=== PATIENT | female | born 1960 | race Caucasian/White ===

== ENCOUNTER → 2018-11-28 | Outpatient (CLI) | payer MEDICARE, MEDICAID ==
--- NOTE | 2018-11-28 08:49 | WOMENS IMAGING REPORT ---
EXAM DESCRIPTION: U/S ABDOMEN LIMITED COMPLETED DATE/TIME: 11/28/2018 8:15 am REASON FOR STUDY: K70.0 ALCOHOLIC FATTY LIVER K70.0 ALCOHOLIC FATTY LIVER COMPARISON: None. TECHNIQUE: Dynamic and static grayscale images acquired of the abdomen and recorded on PACS. Additio nal selected color Doppler and spectral images recorded. LIMITATIONS: None. FINDINGS: PANCREAS: No masses. Visualized pancreatic duct normal caliber. LIVER: For coarsened hepatic echotexture with nodular contour. No intrahepatic biliary ductal dilati on. No focal lesion identified. LIVER VASCULATURE: Normal directional flow of the main portal vein and hepatic veins. GALLBLADDER: No stones. Normal wall thickness. No pericholecystic fluid. ULTRASOUND-DETECTED HAHN'S SIGN: Negative. INTRAHEPATIC DUCTS AND COMMON DUCT: CBD and intrahepatic ducts normal caliber. No filling defects. INFERIOR VENA CAVA: Normal flow. AORTA: Aortic atherosclerosis. No aneurysm. RIGHT KIDNEY: Normal in size measuring 9.4 cm. Cortical thinning. Normal echogenicity. No solid or suspicious masses. No hydronephrosis. No calcifications. PERITONEAL AND RIGHT PLEURAL SPACE: No ascites or effusions. OTHER: No other significant findings. IMPRESSION: 1. Coarsened hepatic echotexture and nodular contour suggestive of intrinsic liver dise ase/cirrhosis. No ascites. 2. No other evidence of acute intra-abdominal/pelvic process . TECHNICAL DOCUMENTATION: JOB ID: [id number] [employer]- All Rights Reserved Reading location - IP/workstation name: [email or web address]
== END ==
LOC: WI 07:45
PROVIDERS: ATTEND Internal Medicine Gastroenterology
DX: K70.30 Alcoholic cirrhosis of liver without ascites (principal); I70.0 Atherosclerosis of aorta
CPT/HCPCS: 76705

== ENCOUNTER → 2019-11-02 | Outpatient (CLI) | payer MEDICARE, MEDICAID ==
--- NOTE | 2019-11-02 08:39 | WOMENS IMAGING REPORT ---
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 TECHNIQUE: Dynamic and static grayscale images acquired of the abdomen and recorded on PACS. Additio nal selected color Doppler and spectral images recorded. LIMITATIONS: None. FINDINGS: PANCREAS: The visualized portions of the pancreas appear normal. LIVER: Nodular contour and coarse heterogeneous echotexture of the liver. There is no mass. LIVER VASCULATURE: Hepatopetal directional flow in the portal veins. The hepatic veins are patent. GALLBLADDER: The gallbladder wall measures 2.5 mm in thickness. There is no cholelithiasis, sludge o r pericholecystic fluid. ULTRASOUND-DETECTED HAHN'S SIGN: Negative. INTRAHEPATIC DUCTS AND COMMON DUCT: The common bile duct measures 2.8 mm in diameter. There is no di latation of the intrahepatic bile ducts. INFERIOR VENA CAVA: Patent. AORTA: No aneurysm. RIGHT KIDNEY: The right kidney measures 9.6 cm in length. The cortex of the kidney is thinned. The re is no hydronephrosis. PERITONEAL AND RIGHT PLEURAL SPACE: No ascites or effusions. OTHER: No other findings. IMPRESSION: 1. Nodular contour and coarse heterogeneous echotexture of the liver suggestive of under lying cirrhosis. There is no mass or ascites and there is normal hepatopetal directional flow in the portal veins. 2. No abnormality of the gallbladder. 3. Thinning of the cortex of the right kidney - correlate for chronic medical renal disease. TECHNICAL DOCUMENTATION: JOB ID: [id number] 2010 [employer]- All Rights Reserved Reading location - IP/workstation name: [email or web address]
== END ==
LOC: WI 06:50
PROVIDERS: ATTEND Internal Medicine Gastroenterology
DX: K70.30 Alcoholic cirrhosis of liver without ascites (principal)
CPT/HCPCS: 76705

== ENCOUNTER 2019-12-04 05:40 | Emergency (ER) | payer MEDICARE, MEDICAID ==
--- NOTE | 2019-12-04 06:18 | RADIOLOGY REPORT (SQ) ---
EXAM DESCRIPTION: XR ANKLE 3 OR MORE VIEWS COMPLETED DATE/TME: 12/04/2019 00:00 CLINICAL HISTORY: 59 years, Female, fall/ swelling COMPARISON: None. NUMBER OF VIEWS: 3 TECHNIQUE: 3 views right ankle LIMITATIONS: None. FINDINGS: Osteopenia. Nondisplaced fracture of the distal fibula. Mildly displaced fracture of the medial malleolus. No dislocation. Chronic, degenerative changes of the foot and ankle. Diffuse soft tissue swelling. IMPRESSION: Acute fracture deformities of the distal fibula and medial malleolus with soft tissue swelling. copyright 2010 [employer]- All Rights Reserved
[2019-12-04] MEDS ORDERED: OXYCODONE-ACETAMINOPHEN 5-325 MG TABLET PO ONE (06:35)
[2019-12-04] MEDS ORDERED: IBUPROFEN 600 MG TABLET PO ONE (06:35)
--- NOTE | 2019-12-04 07:08 | ER Document Report ---
HPI - HPI Time Seen by Provider: 12/04/19 05:58 Pain Level: 5 Notes: 59-year-old female patient presents the emergency department chief complaint of right ankle pain. Patient reports she fell just prior to arrival. She states she tripped. She did not pass out, she did not strike her head. Patient reports she cannot bear weight. - MUSCULOSKELETAL Musculoskeletal: REPORTS: Extremity pain - right ankle Past Medical History - General Information source: Patient - Social History Smoking Status: Former Smoker Frequency of alcohol use: None Drug Abuse: None Family History: Reviewed & Not Pertinent - Past Medical History Cardiac Medical History: Reports: Hx Hypertension Surgical Hx: Negative Vertical Provider Document - CONSTITUTIONAL Notes: PHYSICAL EXAMINATION: GENERAL: Well-appearing, well-nourished and in no acute distress. HEAD: Atraumatic, normocephalic. EYES: Pupils equal round extraocular movements intact, conjunctiva are normal. ENT: Nares patent NECK: Normal range of motion LUNGS: No respiratory distress Musculoskeletal: Limited range of motion at right ankle, edema noted. No ecchymosis or erythema. Strong dorsalis pedis pulse, cap refill less than 3 seconds. Tenderness on palpation to both the medial and lateral aspect of the ankle. NEUROLOGICAL: Normal speech. PSYCH: Normal mood, normal affect. SKIN: Warm, Dry, normal turgor, no rashes or lesions noted. - INFECTION CONTROL TRAVEL OUTSIDE OF THE [place] IN LAST 30 DAYS: No Course - Re-evaluation Re-evalutation: Ankle X-Ray 12/04/19 00:00 IMPRESSION: Acute fracture deformities of the distal fibula and medial malleolus with soft tissue swelling. copyright 2010 [employer]- All Rights Reserved Patient splinted. She will follow-up with orthopedics. Patient verbalized understanding and agreement this plan. - Vital Signs Vital signs: Temp Pulse Resp BP Pulse Ox 98.6 F 105 H 12 117/84 95 12/04/19 05:46 12/04/19 05:46 12/04/19 05:46 12/04/19 05:46 12/04/19 05:46 Procedures - Immobilization Right lower extremity Pre-Proc Neuro Vasc Exam: Normal Immobilizer type: Cock-up, Crutches Performed by: PCT Post-Proc Neuro Vasc Exam: Normal Alignment checked and good: Yes Discharge - Discharge Clinical Impression: Fibula fracture Qualifiers: Encounter type: initial encounter Fibula location: distal Fracture type: closed Fracture morphology: unspecified fracture morphology Laterality: right Qualified Code(s): S82.831A - Other fracture of upper and lower end of right fibula, initial encounter for closed fracture Condition: Stable Disposition: HOME, SELF-CARE Additional Instructions: Fracture of Distal Fibula You have a fracture at the end of the fibula, the smaller bone in the lower leg. The fracture is across the bony bump on the outer side of the ankle. This fracture will usually heal well, but must be protected from the pull of ligaments and tendons at the ankle. If this fracture rotates out of position (or is felt likely to rotate), it must be operated on. Initially, the extremity should be kept elevated, with ice packs applied frequently. This fracture is usually treated with a cast or walking boot. If a walking boot has been selected, it's critical that it NOT be removed without the doctor's approval, not even for sleeping or baths. Healing of this fracture takes about four to eight weeks. Younger patients heal more quickly. An X-ray is usually required during healing to check for complications and to assess healing. Call the doctor or return at once if there is severe swelling, increasing pain, or numbness in the foot. You may take ibuprofen 600 mg every 6 hours. Use the narcotic pain medication for severe pain only. Call orthopedics today to set up an appointment. Let them know you are seen in the emergency department and need follow-up. Prescriptions: Oxycodone HCl/Acetaminophen [Percocet 5-325 mg Tablet] 1 tab PO Q6HP PRN #15 tablet PRN Reason: Walker [Ultra-Light Rollator] 1 each MC ONCE PRN #1 each PRN Reason: Referrals: RAGHAV ESCOTO, [ACTIVE STAFF] - Follow up as needed BABS DUGGAN JR, DO [ACTIVE PROVISIONAL STAFF] - Follow up as needed
[2019-12-04 08:44] VITALS: BP 118/74
== END 2019-12-04 08:44 | disposition home or self-care (01) ==
LOC: ER 05:40
DX: S82.831A Other fracture of upper and lower end of right fibula, initial encounter for closed fracture (principal); S82.51XA Displaced fracture of medial malleolus of right tibia, initial encounter for closed fracture; M25.571 Pain in right ankle and joints of right foot; W19.XXXA Unspecified fall, initial encounter; Y93.89 Activity, other specified
CPT/HCPCS: 99283; 73610; A9270 ×2

== ENCOUNTER 2019-12-24 13:05 | Emergency (ER) | payer MEDICARE, MEDICAID ==
[2019-12-24 13:17] VITALS: BP 125/88
--- NOTE | 2019-12-24 13:51 | ER Document Report ---
ED Extremity Problem, Lower - General Chief Complaint: Ankle Pain Stated Complaint: ANKLE PAIN Time Seen by Provider: 12/24/19 13:42 Primary Care Provider: BERNY DASH MD [Primary Care Provider] - Follow up as needed CARLOS TRAVIS MD [ACTIVE STAFF] - Follow up as needed Mode of Arrival: Medic Information source: Patient Notes: 59-year-old female presented to ED for complaint of continued pain in the right ankle. She states she fractured her ankle on December 08. She did go in to see Alexis he put a brace on her ankle and put her on Ultram. She states she is not getting any relief from the pain and she cannot walk on the brace he put on her. I did place a call to Dr. Travis will re-x-ray the ankle and then discussed with him the care plan after that. TRAVEL OUTSIDE OF THE [place] IN LAST 30 DAYS: No - HPI Patient complains to provider of: Injury, Pain, Swelling Location: Ankle Occurred: Other - Repeat visit continued pain Onset/Duration: Persistent Severity: Moderate Pain Level: 2 Context: Other - Should her ankle on December 08 cassie Travis is still having pain Recent injury: Yes Associated symptoms: Painful ambulation Exacerbated by: Movement, Walking Relieved by: Elevation, Ice, Rest - Related Data Allergies/Adverse Reactions: Penicillins Allergy (Verified 12/24/19 13:32) Sulfa (Sulfonamide Antibiotics) Allergy (Verified 12/24/19 13:32) Home Medications: htn. mood stabilizer. antidepressant. trazadone. tramadol Past Medical History - General Information source: Patient - Social History Smoking Status: Current Every Day Smoker Cigarette use (# per day): Yes - 1/2 pack/day Chew tobacco use (# tins/day): No Frequency of alcohol use: Social Drug Abuse: None Lives with: Family Family History: Reviewed & Not Pertinent Patient has homicidal ideation: No - Past Medical History Cardiac Medical History: Reports: Hx Hypertension Pulmonary Medical History: Reports: None EENT Medical History: Reports: None Neurological Medical History: Reports: None Endocrine Medical History: Reports: None Renal/ Medical History: Reports: None Malignancy Medical History: Reports: None GI Medical History: Reports: None Musculoskeletal Medical History: Reports None Skin Medical History: Reports None Psychiatric Medical History: Reports: Hx Depression Traumatic Medical History: Reports: None Infectious Medical History: Reports: None Past Surgical History: Reports: Hx Orthopedic Surgery - right ankle - Immunizations Immunizations up to date: Yes Review of Systems - Review of Systems Constitutional: No symptoms reported EENT: No symptoms reported Cardiovascular: No symptoms reported Respiratory: No symptoms reported Gastrointestinal: No symptoms reported Genitourinary: No symptoms reported Female Genitourinary: No symptoms reported Musculoskeletal: Other - Injured right ankle pain fractured on December 08 Skin: No symptoms reported Hematologic/Lymphatic: No symptoms reported Neurological/Psychological: No symptoms reported -: Yes All other systems reviewed and negative Physical Exam - Vital signs Vitals: Temp Pulse Resp BP Pulse Ox 99.0 F 80 16 125/88 H 97 12/24/19 13:16 12/24/19 13:16 12/24/19 13:16 12/24/19 13:16 12/24/19 13:16 Interpretation: Normal - General General appearance: Appears well, Alert - HEENT Head: Normocephalic, Atraumatic Eyes: Normal Pupils: PERRL - Respiratory Respiratory status: No respiratory distress Chest status: Nontender Breath sounds: Normal Chest palpation: Normal - Cardiovascular Rhythm: Regular Heart sounds: Normal auscultation Murmur: No - Abdominal Inspection: Normal Distension: No distension Bowel sounds: Normal Tenderness: Nontender Organomegaly: No organomegaly - Back Back: Normal, Nontender - Extremities General upper extremity: Normal inspection, Nontender, Normal color, Normal ROM, Normal temperature General lower extremity: Normal color, Normal ROM, Normal temperature. No: Nirmal's sign Ankle: Tender, Ecchymosis, Edema, Limited ROM, Unable to bear weight - Neurological Neuro grossly intact: Yes Cognition: Normal Orientation: AAOx4 Bridger Coma Scale Eye Opening: Spontaneous [place] Coma Scale Verbal: Oriented Bridger Coma Scale Motor: Obeys Commands Corning Coma Scale Total: 15 Speech: Normal Motor strength normal: LUE, RUE, LLE, RLE Sensory: Normal - Psychological Associated symptoms: Normal affect, Normal mood - Skin Skin Temperature: Warm Skin Moisture: Dry Skin Color: Normal Course - Re-evaluation Re-evalutation: 12/24/19 21:[address] Travis concerning this patient as she had been seen in the emergency room and treated by Dr. Travis. Patient stated that she took the splint off to Dr. Travis put on because it was uncomfortable and had been walking on the foot. She stated she needed pain medicine. The fracture to the ankle is now comminuted. Dr. Travis did look at the x-ray he requested a posterior ankle be applied and crutches provided and patient to be discharged home and to be in his office at 8:00 in the morning. Patient was given these instructions after her splint was applied. - Vital Signs Vital signs: Temp Pulse Resp BP Pulse Ox 99.0 F 80 16 125/88 H 97 12/24/19 13:32 12/24/19 13:16 12/24/19 13:16 12/24/19 13:16 12/24/19 13:16 - Diagnostic Test Radiology reviewed: Image reviewed, Reports reviewed Procedures - Immobilization Right Ankle Time completed: 14:51 Immobilizer type: Posterior ankle Performed by: PCT Post-Proc Neuro Vasc Exam: Normal Alignment checked and good: No Notes: 12/24/19 21:47 Patient refused crutches she stated she had them at home. Discharge - Discharge Clinical Impression: Comminuted fracture right ankle Condition: Stable Disposition: HOME, SELF-CARE Additional Instructions: Your x-ray shows a slightly displaced distal comminuted fracture of the fibula and a nondisplaced medial malleolus fracture. There is slight swelling to the area. I have spoken with Dr. Travis. He requested a posterior ankle splint and for you to be in his office at 8:00 in the morning. Ice & Elevation Apply ice packs frequently against the painful area. Many different schedules are recommended, such as "20 minutes on, 20 minutes off" or "one hour ice, two hours rest." If you need to work, you may need to go longer between ice treatments. You should plan to have the area ice packed AT LEAST one-fourth of the time. The ice should be applied over the wrap, tape, or splint, or over a layer of cloth -- not directly against the skin. Some ice bags have a built-in cloth and can be put directly on the skin. Your injured part should be elevated as much as possible over the next 48 hours. Try to keep the injury above the level of the heart. Avoid use of the injured area. Elevation and rest will decrease the swelling. Ibuprofen Ibuprofen is an excellent, safe drug for pain control. In addition, it has potent antiinflammatory effects which are beneficial, especially in the treatment of injuries, arthritis, or tendonitis. It's best to take ibuprofen with food. Persons with ulcer disease or allergy to aspirin should notify their physician of this before taking ibuprofen. Take the medication exactly as prescribed. Don't take additional doses unless instructed to do so by your doctor. If you develop wheezing, shortness of breath, hives, faintness, stomach pain, vomiting, or dark black stools, return for re-evaluation at once. Oral Narcotic Medication You have been given a prescription for pain control. This medication is a narcotic. It's best taken with food, as nausea can result if taken on an empty stomach. Don't operate machinery or drive within six hours of taking this medication. Do not combine this medicine with alcohol, or with any medication which can cause sedation (such as cold tablets or sleeping pills) unless you get permission from the physician. Narcotics tend to cause constipation. If possible, drink plenty of fluids and eat a diet high in fiber and fruits. FOLLOW-UP CARE: If you have been referred to a physician for follow-up care, call the physicians office for an appointment as you were instructed or within the next two days. If you experience worsening or a significant change in your symptoms, notify the physician immediately or return to the Emergency Department at any time for re-evaluation. Forms: Elevated Blood Pressure Referrals: BERNY DASH MD [Primary Care Provider] - Follow up as needed CARLOS TRAVIS MD [ACTIVE STAFF] - Follow up as needed
--- NOTE | 2019-12-24 14:23 | RADIOLOGY REPORT (SQ) ---
EXAM DESCRIPTION: ANKLE RIGHT COMPLETE IMAGES COMPLETED DATE/TIME: 12/24/2019 2:11 pm REASON FOR STUDY: continued pain in right ankle COMPARISON: 12/04/2019 NUMBER OF VIEWS: Three views. TECHNIQUE: AP, lateral, and oblique radiographic images acquired of the right ankle. LIMITATIONS: None. FINDINGS: MINERALIZATION: Normal. BONES: Slightly displaced comminuted fracture distal fibula. Nondisplaced medial malleolus. Soft t issue swelling. Retrocalcaneal spur. JOINTS: No effusions. SOFT TISSUES: No soft tissue swelling. No foreign body. OTHER: No other significant finding. IMPRESSION: 1. Slightly displaced distal comminuted fibula fracture. Nondisplaced medial malleolus fracture. Soft tissue swelling. TECHNICAL DOCUMENTATION: JOB ID: [id number] 2010 [employer]- All Rights Reserved Reading location - IP/workstation name: [email or web address]
[2019-12-24] MEDS ORDERED: HYDROCODONE/ACETAMINOPHEN 5-325 MG TABLET PO ONE (14:46)
== END 2019-12-24 15:06 | disposition home or self-care (01) ==
LOC: ER 13:05
PROC: 2W3QX1Z Immobilization of Right Lower Leg using Splint (ICD-10-PCS; principal; 2019-12-24)
DX: S82.891A Other fracture of right lower leg, initial encounter for closed fracture (principal); M25.571 Pain in right ankle and joints of right foot; X58.XXXA Exposure to other specified factors, initial encounter; Z79.899 Other long term (current) drug therapy; Z88.0 Allergy status to penicillin; Z88.2 Allergy status to sulfonamides; F17.210 Nicotine dependence, cigarettes, uncomplicated; I10 Essential (primary) hypertension
CPT/HCPCS: 99283; 73610; 29515; A9270

== ENCOUNTER 2019-12-25 09:20 | Emergency (ER) | payer MEDICARE, MEDICAID ==
[2019-12-25 09:34] VITALS: BP 138/77
[2019-12-25] MEDS ORDERED: HYDROCODONE/ACETAMINOPHEN 5-325 MG (6 TAB/ER DISP) PO PRN (09:57)
--- NOTE | 2019-12-25 10:05 | ER Document Report ---
ED Extremity Problem, Lower - General Chief Complaint: Leg Pain Stated Complaint: LEG INJURY Time Seen by Provider: 12/25/19 09:52 Primary Care Provider: BERNY DASH MD [Primary Care Provider] - Follow up as needed Mode of Arrival: Wheelchair Information source: Patient Notes: 59-year-old female was seen on 12/09 and was diagnosed with a fractured ankle he did follow-up with Dr. Brown who treated her. She came in yesterday stating that he did not give her enough pain medicine and that she did not like the brace it was making her pain worse. So I did re-x-ray the ankle called Dr. Brown had him look at the x-ray and he saw her this morning at 8:00. She came in again today because he would not give her any pain medicine he did put a cast on her leg. I did treat her with a sixpack of [place] until she can get in with pain management. TRAVEL OUTSIDE OF THE [place] IN LAST 30 DAYS: No - HPI Patient complains to provider of: Injury, Pain, Swelling Location: Ankle Occurred: Other - 06/11/2019 Onset/Duration: Persistent Quality of pain: Sharp, Throbbing Severity: Moderate Pain Level: 4 Context: Other Recent injury: Yes - Acute ankle Associated symptoms: Painful ambulation Exacerbated by: Hanging down, Movement, Walking Relieved by: Elevation, Ice, Rest - Related Data Allergies/Adverse Reactions: Penicillins Allergy (Verified 12/24/19 13:32) Sulfa (Sulfonamide Antibiotics) Allergy (Verified 12/24/19 13:32) Past Medical History - General Information source: Patient - Social History Smoking Status: Current Every Day Smoker Frequency of alcohol use: Social Drug Abuse: None Lives with: Family Family History: Reviewed & Not Pertinent Patient has suicidal ideation: No Patient has homicidal ideation: No - Past Medical History Cardiac Medical History: Reports: Hx Hypertension Pulmonary Medical History: Reports: None EENT Medical History: Reports: None Neurological Medical History: Reports: None Endocrine Medical History: Reports: None Renal/ Medical History: Reports: None Malignancy Medical History: Reports: None GI Medical History: Reports: None Musculoskeletal Medical History: Reports Hx Musculoskeletal Deformity, Reports Hx Musculoskeletal Trauma Skin Medical History: Reports None Psychiatric Medical History: Reports: Hx Depression Traumatic Medical History: Reports: Hx Fractures Infectious Medical History: Reports: None Past Surgical History: Reports: Hx Orthopedic Surgery - right ankle - Immunizations Immunizations up to date: Yes Review of Systems - Review of Systems Constitutional: No symptoms reported EENT: No symptoms reported Cardiovascular: No symptoms reported Respiratory: No symptoms reported Gastrointestinal: No symptoms reported Genitourinary: No symptoms reported Female Genitourinary: No symptoms reported Musculoskeletal: Other - Right ankle pain which is in a cast. Patient was seen at Dr. Brown's office today fractured ankle Skin: No symptoms reported Hematologic/Lymphatic: No symptoms reported Neurological/Psychological: No symptoms reported -: Yes All other systems reviewed and negative Physical Exam - Vital signs Vitals: Temp Pulse Resp BP Pulse Ox 98.8 F 77 16 138/77 H 98 12/25/19 09:33 12/25/19 09:33 12/25/19 09:33 12/25/19 09:33 12/25/19 09:33 Interpretation: Normal - General General appearance: Appears well, Alert - HEENT Head: Normocephalic, Atraumatic Eyes: Normal Pupils: PERRL - Respiratory Respiratory status: No respiratory distress Chest status: Nontender Breath sounds: Normal Chest palpation: Normal - Cardiovascular Rhythm: Regular Heart sounds: Normal auscultation Murmur: No - Abdominal Inspection: Normal Distension: No distension Bowel sounds: Normal Tenderness: Nontender Organomegaly: No organomegaly - Back Back: Normal, Nontender - Extremities General upper extremity: Normal inspection, Nontender, Normal color, Normal ROM, Normal temperature General lower extremity: Normal color, Normal temperature. No: Nirmal's sign Ankle: Other - Patient has a cast on her right lower leg. She was seen at Dr. Brown's office this morning for a fractured ankle. She was put in a cast at that time. - Neurological Neuro grossly intact: Yes Cognition: Normal Orientation: AAOx4 [place] Coma Scale Eye Opening: Spontaneous [place] Coma Scale Verbal: Oriented [place] Coma Scale Motor: Obeys Commands [place] Coma Scale Total: 15 Speech: Normal Motor strength normal: LUE, RUE, LLE, RLE Sensory: Normal - Psychological Associated symptoms: Normal affect, Normal mood - Skin Skin Temperature: Warm Skin Moisture: Dry Skin Color: Normal Course - Re-evaluation Re-evalutation: 12/25/19 22:26 Patient to the emergency room for pain medication. She states that when she saw Dr. Brown he would not give her any pain medicine and she needs some pain medicine until she can get the pain management. I did discuss with patient that I could not write a prescription as she is already been seen by a medicare insurance specialist but I would give her [place] dispense pack and she needs to schedule that with ibuprofen until she can get into pain management. Patient verbalized understanding and agreement with this treatment plan and patient was discharged home. - Vital Signs Vital signs: Temp Pulse Resp BP Pulse Ox 98.8 F 77 16 138/77 H 98 12/25/19 09:33 12/25/19 09:33 12/25/19 09:33 12/25/19 09:33 12/25/19 09:33 Discharge - Discharge Clinical Impression: Closed right ankle fracture Qualifiers: Encounter type: subsequent encounter Fracture healing: with malunion Qualified Code(s): S82.891P - Other fracture of right lower leg, subsequent encounter for closed fracture with malunion Condition: Stable Disposition: HOME, SELF-CARE Additional Instructions: Fractured Ankle (Bimalleolar) You have a fracture of both bones of the lower leg at the ankle. If there is dispacement of the bones from their proper alignment, manipulation of the ankle and foot may be necessary to re-align the bones properly. This fracture wll require a cast for healing and some of the more serious fractures of this type will require surgery. If surgery is not required, the bones requires only protection and sufficient time for healing. The initial treatment is i mmobilization, elevation, and ice packs. Depending on the type of fracture, immobilization may consist of a splint or cast. The length of time required for healing depends on the type of fracture. You will be referred to an orthopedic surgeon who will re-assess you periodically to make certain that the bone heals without complications. It's important that you follow the instructions given you. Oral Narcotic Medication You have been given a norco disp pack for pain control. This medication is a narcotic. It's best taken with food, as nausea can result if taken on an empty stomach. Don't operate machinery or drive within six hours of taking this medication. Do not combine this medicine with alcohol, or with any medication which can cause sedation (such as cold tablets or sleeping pills) unless you get permission from the physician. Narcotics tend to cause constipation. If possible, drink plenty of fluids and eat a diet high in fiber and fruits. Ice & Elevation Apply ice packs frequently against the painful area. Many different schedules are recommended, such as "20 minutes on, 20 minutes off" or "one hour ice, two hours rest." If you need to work, you may need to go longer between ice treatments. You should plan to have the area ice packed AT LEAST one-fourth of the time. The ice should be applied over the wrap, tape, or splint, or over a layer of cloth -- not directly against the skin. Some ice bags have a built-in cloth and can be put directly on the skin. Your injured part should be elevated as much as possible over the next 48 hours. Try to keep the injury above the level of the heart. Avoid use of the injured area. Elevation and rest will decrease the swelling. Ibuprofen Ibuprofen is an excellent, safe drug for pain control. In addition, it has potent antiinflammatory effects which are beneficial, especially in the treatment of injuries, arthritis, or tendonitis. It's best to take ibuprofen with food. Persons with ulcer disease or allergy to aspirin should notify their physician of this before taking ibuprofen. Take the medication exactly as prescribed. Don't take additional doses unless instructed to do so by your doctor. If you develop wheezing, shortness of breath, hives, faintness, stomach pain, vomiting, or dark black stools, return for re-evaluation at once. FOLLOW-UP CARE: If you have been referred to a physician for follow-up care, call the physicians office for an appointment as you were instructed or within the next two days. If you experience worsening or a significant change in your symptoms, notify the physician immediately or return to the Emergency Department at any time for re-evaluation. Forms: Elevated Blood Pressure Referrals: BERNY DASH MD [Primary Care Provider] - Follow up as needed
== END 2019-12-25 10:11 | disposition home or self-care (01) ==
LOC: ER 09:20
DX: S82.54 Nondisplaced fracture of medial malleolus of right tibia (principal); S82.831P Other fracture of upper and lower end of right fibula, subsequent encounter for closed fracture with malunion; W19.XXXD Unspecified fall, subsequent encounter; F17.200 Nicotine dependence, unspecified, uncomplicated; I10 Essential (primary) hypertension; Z88.0 Allergy status to penicillin; Z88.2 Allergy status to sulfonamides
CPT/HCPCS: 99283; A9270